=== PATIENT | female | born 1990 | race Two or more races ===

== ENCOUNTER 2022-09-25 20:43 | Emergency (ER) | payer OTHER ==
[~2022-09-25] VITALS: Ht 160 cm; Wt 61.2 kg
--- NOTE | 2022-09-25 21:00 | NUR ---
PT C/O NEEDLE STICK AT WORK ON R INDEX FINGER
--- NOTE | 2022-09-25 21:24 | NUR ---
SEEN BY SURVEYOR CHAIN HELPER
--- NOTE | 2022-09-25 22:59 | NUR ---
Patient discharged to home in stable condition. Written and verbal after care instructions given. Patient verbalizes understanding of instruction.
[2022-09-25 23:01] VITALS: BP 121/60
== END 2022-09-25 21:30 | disposition home or self-care (01) ==
LOC: ER 20:44
DX: S61.230A Puncture wound without foreign body of right index finger without damage to nail, initial encounter (principal); W46.1XXA Contact with contaminated hypodermic needle, initial encounter; Y93.89 Activity, other specified; Y92.89 Other specified places as the place of occurrence of the external cause; Y99.0 Civilian activity done for income or pay
CPT/HCPCS: 36415; 86706; 86803; 87340; 87806